=== PATIENT | male | born 1955 | race Caucasian/White ===

== ENCOUNTER 2022-10-21 07:19 | Outpatient (CLI) | payer OTHER | END 2022-10-21 07:26 | disposition home or self-care (01) | LOC: TOM 07:19 | PROVIDERS: ATTEND Surgery | DX: K57.32 Diverticulitis of large intestine without perforation or abscess without bleeding (principal); K59.09 Other constipation; Z86.010 Personal history of colon polyps | CPT/HCPCS: 74177; Q9965 ==